=== PATIENT | male | born 1965 | race Caucasian/White ===

== ENCOUNTER 2020-12-23 15:58 | Outpatient (REF) | payer SELFPAY | END 2020-12-23 15:59 | disposition home or self-care (01) | LOC: LBN 15:58 | PROVIDERS: PCP Family Medicine; Visit Provider Family Medicine | DX: R30.9 Painful micturition, unspecified (principal) | CPT/HCPCS: 87086 ==

== ENCOUNTER 2021-02-25 14:59 | Outpatient (REF) | payer SELFPAY ==
[2021-02-25 17:36] LABS: HCT 37.9 % (40.0-50.0); HGB 11.9 g/dL (13.5-17.5); MCH 30.1 pg (27.0-33.0); MCHC 31.4 % (32.0-36.0); MCV 95.9 fL (80-95); MPV 10.8 fL (8.0-11.0); Platelet Count 226 10^3/uL (130-400); RBC 3.95 10^6/uL (4.36-5.78); RDW-SD 56.5 fL; WBC 9.18 10^3/uL (4.4-10.8)
[2021-02-25 19:43] LABS: ALT 29 U/L (16-63); AST 13 U/L (15-37); Albumin 3.4 g/dL (3.4-5.0); Alkaline Phosphatase 97 U/L (46-116); Anion Gap 13.1 mmol/L (3-11); BUN 16 mg/dL (7-18); Bilirubin, Total 0.3 mg/dL (0.2-1.0); CO2 23.9 mmol/L (21.0-32.0); CREATININE 0.9 mg/dL (0.70-1.30); Chloride 104 mmol/L (98-107); Cholesterol 271 mg/dL (<200); Glucose 124 mg/dL (74-106); HDL Cholesterol 36 mg/dL (40-60); Potassium 3.7 mmol/L (3.5-5.1); Sodium 141 mmol/L (136-145); Triglyceride 485 mg/dL (<150)
[2021-02-25 20:01] LABS: C-Reactive Protein 0.39 mg/dL (0.0-0.3)
[2021-02-25 20:14] LABS: LDL CHOLESTEROL 121 mg/dL (<100)
[2021-02-28 09:40] LABS: PSA, Screening 0.9 ng/mL (0.0-3.5)
== END 2021-02-25 15:00 | disposition home or self-care (01) ==
LOC: NCHCN 14:59
PROVIDERS: PCP Family Medicine; Visit Provider Family Medicine
DX: U07.1 COVID-19 (principal); Z00.00 Encounter for general adult medical examination without abnormal findings; Z86.2 Personal history of diseases of the blood and blood-forming organs and certain disorders involving the immune mechanism; Z86.39 Personal history of other endocrine, nutritional and metabolic disease; Z87.01 Personal history of pneumonia (recurrent)
CPT/HCPCS: 80053; 80061; 83721; 84153; 85027; 86140

== ENCOUNTER 2021-06-01 17:53 | Outpatient (REF) | payer SELFPAY ==
[2021-06-01 19:59] LABS: Abs Immature Grans 0.08 10^3/uL (0.0-0.06); Absolute Basophil Count 0.05 10^3/uL (0.0-0.2); Absolute Eosinophil Count 0.23 10^3/uL (0.0-0.7); Absolute Lymphocyte Count 1.64 10^3/uL (1.2-3.4); Absolute Monocyte Count 0.68 10^3/uL (0.1-0.8); Absolute Neutrophil Count 6.65 10^3/uL (1.2-6.7); Basophils % 0.5; Eosinophils % 2.5; HCT 41.9 % (40.0-50.0); HGB 13.2 g/dL (13.5-17.5); Immature Grans % 0.9; Lymphocytes % 17.6; MCH 28.8 pg (27.0-33.0); MCHC 31.5 % (32.0-36.0); MCV 91.3 fL (80-95); MPV 9.8 fL (8.0-11.0); Monocytes % 7.3; Neutrophils % 71.2; Nucleated RBC 0 %; Platelet Count 288 10^3/uL (130-400); RBC 4.59 10^6/uL (4.36-5.78); RDW 13.8 % (11.8-14.1); RDW-SD 46.7 fL; WBC 9.33 10^3/uL (4.4-10.8)
[2021-06-01 20:06] LABS: Anion Gap 8.2 mmol/L (3-11); BUN 24 mg/dL (7-18); CO2 25.8 mmol/L (21.0-32.0); CREATININE 1.1 mg/dL (0.70-1.30); Chloride 104 mmol/L (98-107); Glucose 97 mg/dL (74-106); Potassium 4.3 mmol/L (3.5-5.1); Sodium 138 mmol/L (136-145)
== END 2021-06-01 17:54 | disposition home or self-care (01) ==
LOC: NCHCN 17:53
PROVIDERS: PCP Family Medicine; Visit Provider Physician Assistant Medical
DX: R42 Dizziness and giddiness (principal)
CPT/HCPCS: 80048; 85025

== ENCOUNTER 2021-12-27 02:19 | Outpatient (CLI) | payer SELFPAY ==
[2021-12-27 08:52] LABS: HCT 46.3 % (40.0-50.0); HGB 14.6 g/dL (13.5-17.5); MCHC 31.5 % (32.0-36.0); MCV 89 fL (80-95); MPV 9.4 fL (8.0-11.0); Platelet Count 304 10^3/uL (130-400); RBC 5.22 10^6/uL (4.36-5.78); RDW 15.8 % (11.8-14.1); RDW-SD 51.3 fL
[2021-12-27 09:21] LABS: Anion Gap 10.4 mmol/L (3-11); BUN 26 mg/dL (7-18); CO2 27.6 mmol/L (21.0-32.0); CREATININE 1.2 mg/dL (0.70-1.30); Calcium 9.4 mg/dL (8.5-10.1); Chloride 101 mmol/L (98-107); Estimated GFR 70.53 (mL/min/1.73m2); Glucose 101 mg/dL (74-106); Potassium 4.4 mmol/L (3.5-5.1); Sodium 139 mmol/L (136-145)
[2021-12-27 12:34] LABS: Source Nasal/Nares
[2021-12-27 18:15] LABS: COVID-19 PCR Negative (Negative)
== END 2021-12-27 02:20 | disposition home or self-care (01) ==
LOC: LBO 02:19
PROVIDERS: PCP Family Medicine; Visit Provider Student in an Organized Health Care Education/Training Program
DX: M25.551 Pain in right hip (principal); M87.051 Idiopathic aseptic necrosis of right femur; Z20.822 Contact with and (suspected) exposure to COVID-19; Z01.818 Encounter for other preprocedural examination; Z01.812 Encounter for preprocedural laboratory examination
CPT/HCPCS: 36415; 80048; 85027; 87635

== ENCOUNTER 2021-12-28 06:02 | Day surgery (SDC) | payer SELFPAY ==
[2021-12-28] VITALS (14 sets, daily range): BP systolic 92–124; BP diastolic 44–84; PULSE 78–94; RESP 13–21; TEMP 36.2–36.5; O2SAT 92–99; BMI 30.6
[2021-12-28] MEDS: Acetaminophen 500 MG TAB 1000 MG PO ×2 (06:27→13:22)
[2021-12-28] MEDS: Celecoxib 200 MG CAP 400 MG PO (06:27)
[2021-12-28] MEDS: Lactated Ringers 1,000 ML 80 ML IV (07:00)
--- NOTE | 2021-12-28 08:30 | DI.RAD_ITS ---
Exam(s) XR HIP RT IN OR EXAM: XR HIP RT IN OR CLINICAL HISTORY: Avascular necrosis of bone of right hip TECHNIQUE: 2D and realtime digital imaging was performed. CONTRAST MATERIAL: Refer to procedure report. COMPARISON: No exams were available for comparison FINDINGS: Fluoroscopy was provided for Dr. Michael during the performance of a right hip arthroplasty placeme nt. Please refer to the procedure report for complete details. Ka,r=6.95 mGy IMPRESSION: RADIATION DOSE DELIVERED:
--- NOTE | 2021-12-28 08:59 | PDOC.DSDIS_ITS ---
Discharge Plan Disposition Patient Disposition: HOME Condition: Good Discharge Details Reason For Visit: R THR Attending Provider: Je Michael Primary Care Provider: Megan Camacho V Home Meds and New Rx's Prescriptions: New celecoxib 200 mg capsule 200 mg PO BID Qty: 60 0RF aspirin 81 mg tablet,delayed release (DR/EC) 81 mg PO BID Qty: 60 0RF acetaminophen 500 mg tablet 1,000 mg PO TID Qty: 90 3RF pantoprazole 40 mg tablet,delayed release (DR/EC) 40 mg PO DAILY Qty: 30 0RF oxycodone 5 mg tablet 5 mg PO Q4H MDD 6 tabs PRN (Reason: pain) Qty: 20 0RF Continued metoprolol tartrate 50 mg tablet 50 mg PO BID baclofen 10 mg tablet 10 mg PO TID diclofenac potassium 50 mg tablet 50 mg PO BID Label Comments: pt. reports he no longer takes gabapentin 300 mg capsule 300 mg PO QHS Discontinued acetaminophen [Tylenol] 325 mg tablet 325 mg PO QID PRN naproxen sodium [Aleve] 220 mg Tablet 220 mg PO DAILY Discharge Instructions Additional Instructions: Total Hip Discharge Instructions Activity: The most important activity is to walk. You should try to take short walks a few times a day. You have no restrictions on movement or positioning, but do not try to force what you do. You will find some stiffness and weakness with hip flexion (lifting your knee). Do not try to strengthen this too early, continue to practice walking and stairs and this will come. - Outpatient physical therapy can be helpful to help return you to a normal gait and improve your flexibility and strength. This can start around 2 weeks. For some patients, it?s not necessary. Usually this is determined at the time of discharge or at the first post-operative visit. - You should wear the RANJEET hose on both legs for 2 weeks. Dressing: Keep the surgical dressing in place for at least one week. After the first week it may be removed and replace with light gauze and tape or nothing. It may get wet after 3 days but avoid soaking the dressing. If it gets wet, just lightly pat dry. It is important to always keep some gauze between skin folds, especially when you are sitting. Spend some time with the wound exposed when you are lying flat as the incision does wrinkle onto itself. Medications: - You should take Tylenol and an anti-inflammatory Celebrex as your primary pain control medications. If the Celebrex is too expensive or not covered, please call the office for another alternative (Advil/Ibuprofen or Naproxen/Aleve). - You have been prescribed a stronger pain medication Oxycodone for breakthrough pain, take as needed as prescribed. - You have also been prescribed a stomach acid reduction agent Pantoprozole to help reduce stomach acid and reflux. - You will be taking Aspirin 81mg twice a day for DVT prevention unless instructed otherwise. - If you have constipation you should take Colace or Miralax (both [id number]). It takes most people 3-4 days to have a bowel movement. Follow-up: 2 weeks If you have any acute concerns or questions, please do not hesitate to contact the office at [phone]. You may contact Dr. Michael with any questions after hours through the hospital at [phone] or on his cell phone at [phone]. Stand Alone Forms: Anesthesia Discharge Inst., Paresh Burns ([facility]) Referrals: Je Michael MD [ [facility] STAFF PHYSICIAN] - Equipment/Supplies: Walker Activity:: Activity as Tolerated Shower/Bathe:: 72 hours Diet:: As Tolerated Discharge Orders Discharge Orders: Discharge Order (Routine); Ordered 12/28/21 Ordered By: Je Michael
--- NOTE | 2021-12-28 09:10 | ANES.PREOP_ITS ---
General Info Date of Service Date Performed: 12/28/21 Height: 6 ft 2 in Weight: 108.2 kg Body Mass Index (BMI): 30.6 Surgical Procedure: Operation Date: 12/28/21 10:35 Proposed Procedure Side Surgeon p Hip Total Hip Anterior Right Je Michael MD Meds Allergies and Home Medications Allergies Allergy/AdvReac Type Severity Reaction Status Date / Time lorazepam AdvReac Intermediate Other (See Unverified 12/28/21 06:16 Comment) Home Medication Medication Instructions Recorded baclofen 10 mg tablet 10 mg PO TID 11/23/21 diclofenac potassium 50 mg tablet 50 mg PO BID 11/23/21 gabapentin 300 mg capsule 300 mg PO QHS 11/23/21 metoprolol tartrate 50 mg tablet 50 mg PO BID 11/23/21 acetaminophen 500 mg tablet 1,000 mg PO TID #90 tabs 12/28/21 aspirin 81 mg tablet,delayed 81 mg PO BID #60 tabs 12/28/21 release celecoxib 200 mg capsule 200 mg PO BID #60 caps 12/28/21 oxycodone 5 mg tablet 5 mg PO Q4H PRN pain #20 tabs 12/28/21 pantoprazole 40 mg tablet,delayed 40 mg PO DAILY #30 tabs 12/28/21 release Current Visit Medications: Current Medications Generic Name Dose Route Start Last Admin Trade Name Kartik PRN Reason Stop Dose Admin Acetaminophen 1,000 mg 12/28/21 06:00 12/28/21 06:27 Acetaminophen 500 Mg Tab PO 1,000 mg PREOP HEIDY Administration Acetaminophen 1,000 mg 12/28/21 12:30 Acetaminophen 500 Mg Tab PO TID HEIDY Aspirin 81 mg 12/28/21 20:00 Aspirin E.C. 81 Mg Tabec PO BID HEIDY Celecoxib 400 mg 12/28/21 06:00 12/28/21 06:27 Celecoxib 200 Mg Cap PO 400 mg PREOP HEIDY Administration Celecoxib 200 mg 12/28/21 20:00 Celecoxib 200 Mg Cap PO BID HEIDY Docusate Sodium 100 mg 12/28/21 07:42 Docusate Sodium 100 Mg Cap PO BID PRN PRN Constipation Ephedrine Sulfate 0 mg 12/28/21 08:52 Ephedrine 25 Mg/5 Ml Syringe IVP DIRECTED PRN Fentanyl 0 mcg 12/28/21 08:52 Fentanyl 100 Mcg/2 Ml Vial IVP DIRECTED PRN Gabapentin 300 mg 12/28/21 22:00 Gabapentin 300 Mg Cap PO HS HEIDY Hydromorphone HCl 0 mg 12/28/21 08:52 Hydromorphone 2 Mg/Ml Syr IVP DIRECTED PRN Tranexamic Acid 1,000 mg/ 60 mls @ 360 mls/hr 12/28/21 06:00 Sodium Chloride IV 12/28/21 18:00 PREOP HEIDY Ringer's Solution 1,000 mls @ 80 mls/hr 12/28/21 06:00 IV 01/26/22 23:59 INFUSION HEIDY Cefazolin Sodium/Dextrose 2 gm in 50 mls @ 100 mls/hr 12/28/21 06:00 Ancef Duplex IVPB 01/26/22 23:59 PREOP HEIDY Cefazolin Sodium/Dextrose 1 gm in 50 mls @ 100 mls/hr 12/28/21 08:00 Ancef Duplex IVPB 12/29/21 00:29 Q8H HEIDY Ringer's Solution 1,000 mls @ 30 mls/hr 12/28/21 09:00 IV INFUSION [facility] IV Miscellaneous Supplies 1 each 12/28/21 06:00 Iv Access IV 01/26/22 23:59 DIRECTED HEIDY Naloxone HCl 0 mg 12/28/21 08:52 Naloxone 0.4 Mg/Ml Vial IVP PRN PRN Ondansetron HCl 4 mg 12/28/21 07:42 Ondansetron 4 Mg/2 Ml Vial IVP Q6H PRN PRN Nausea Oxycodone HCl 0 mg 12/28/21 07:42 Oxycodone 5 Mg Tab PO Q3H PRN PRN Pain Pantoprazole Sodium 40 mg 12/29/21 07:30 Pantoprazole 40 Mg Tabcr PO DAILY@0730 HEIDY Polyethylene Glycol 17 gm 12/28/21 07:42 Polyethylene Glycol 3350 17 Gm Packet PO BID PRN PRN Constipation Sodium Chloride 0 ml 12/28/21 06:00 Normal Saline Flush 10 Ml Syr IV 01/26/22 23:59 PRN PRN Sodium Chloride 0 ml 12/28/21 06:00 Normal Saline 10 Ml Vial IJ 01/26/22 23:59 DIRECTED PRN Sterile Water 0 ml 12/28/21 06:00 Water,Injection,Sterile 10 Ml Vial IJ 01/26/22 23:59 DIRECTED PRN [facility] Active Problems Active Problems: Problem Status Onset Code Lumbar radiculopathy, right M54.16 Constricting chest pain often radiating down left arm R07.89 GERD (gastroesophageal reflux disease) K21.9 Tachycardia R00.0 Avascular necrosis of bone of right hip M87.051 Medical History Medical History (Updated 12/28/21 @ 06:22 by Suha Duke) COVID-19 12/14/20 08/22/21 COVID-19 nichole conwayuler Gout History of pulmonary embolism PE - 12/27/20 HTN (hypertension) pt. denies states he was put on metoprolol when on ventilator, never told he had high BP Hx of colonic polyps Hx of Crohn's disease Nocturia Surgical History Surgical History History of tracheostomy Hx of colonoscopy Hx of wisdom tooth extraction also reports tooth extraction from roof of mouth Status post insertion of percutaneous endoscopic gastrostomy (PEG) tube Tobacco Smoking/Tobacco Use Status: Never Alcohol Alcohol Intake: current Alcohol intake frequency: a few times a week Alcohol type: hard liquor Substance Use Substance use: Never Substance use type: does not use Details: alcohol: t-7 Vital Signs and Lab Results Vital Signs Most Recent Vital Signs in EMR: Most Recent Vital Signs Temp Pulse Resp BP Pulse Ox 36.4 C L 89 18 101/76 96 12/28/21 06:34 12/28/21 06:34 12/28/21 06:34 12/28/21 06:34 12/28/21 06:34 Lab Results Blood Type / Crossmatch: No Data to Display Complete Blood Count: White Blood Count 10.30 10^3/uL (4.4-10.8) 12/27/21 08:42 Red Blood Count 5.22 10^6/uL (4.36-5.78) 12/27/21 08:42 Hemoglobin 14.6 g/dL (13.5-17.5) 12/27/21 08:42 Hematocrit 46.3 % (40.0-50.0) 12/27/21 08:42 Platelet Count 304 10^3/uL (130-400) 12/27/21 08:42 Complete Metabolic Panel: Sodium Level 139 mmol/L (136-145) 12/27/21 08:42 Potassium Level 4.4 mmol/L (3.5-5.1) 12/27/21 08:42 Chloride Level 101 mmol/L (98-107) 12/27/21 08:42 Carbon Dioxide Level 27.6 mmol/L (21.0-32.0) 12/27/21 08:42 Blood Urea Nitrogen 26 mg/dL (7-18) H 12/27/21 08:42 Creatinine 1.2 mg/dL (0.70-1.30) 12/27/21 08:42 Calcium Level 9.4 mg/dL (8.5-10.1) 12/27/21 08:42 Glucose Level 101 mg/dL (74-106) 12/27/21 08:42 Liver Function Panel: No Data to Display Coagulation Panel: No Data to Display Cardiac Panel: No Data to Display Arterial Blood Gas: No Data to Display Venous Blood Gas: No Data to Display Pancreas Panel: No Data to Display Thyroid Panel: No Data to Display Infectious Disease: Coronavirus (COVID-19)(PCR) Negative (Negative) 12/27/21 11:28 Coronavirus 2019 Source Nasal/Nares 12/27/21 11:28 Blood Cultures: No Data to Display Toxicology Panel: No Data to Display Anesthesia Assessment and Plan Anesthesia History Personal History: No History of Anesthesia Complications Family History: No Family History of Anesthesia Complications Exercise Tolerance Exercise Tolerance: Metabolic Equivalents>4 Pertinent Negatives Pertinent Negatives: No Symptoms of GERD, No Major Cardiovascular Symptoms or Complaints and No Major Pulmonary Symptoms or Complaints Cardiac & Pulmonary Exam Cardiac Exam: Normal S1/S2 Heart Sounds Pulmonary Exam: Clear Bilateral Breath Sounds Implantable Cardiac Device Does patient have a Pacemaker or an ICD?: No Airway Exam Known Difficult Airway: No Mallampati Class: 1 Mouth Opening: Normal (> 3cm) Thyromental Distance: Greater than 3 cm Neck Range of Motion: Full ROM Neck Circumference: Normal Teeth Condition: Normal Dentition ASA Classification ASA Score: ASA 2 Emergency Case?: No NPO Status NPO Status: NPO Clears >2 hours, Solids >8 hours Anesthesia Plan Resuscitation Status: Full Code Anesthesia Technique: MAC Anesthesia Airway Planned: Natural Airway Monitors Used: Standard Monitors
[2021-12-28] MEDS: ceFAZolin 2 GM/50 ML BAG IVPB (09:59)
[2021-12-28] MEDS: HYDROmorphone 2 MG/ML SYR IVP ×3 (12:09→12:45)
[2021-12-28] MEDS: Normal Saline 10 ML VIAL IJ (12:09)
--- NOTE | 2021-12-28 12:51 | W.ANESPOSTOP ---
Postoperative Evaluation Date, Time and Location Date Performed: 12/28/21 Time Performed: 12:51 Patient Location: PACU Vital Signs Most Recent Imported Vital Signs: Most Recent Vital Signs Temp Pulse Resp BP Pulse Ox 36.4 C L 78 19 104/84 94 12/28/21 12:44 12/28/21 12:44 12/28/21 12:44 12/28/21 12:44 12/28/21 12:44 Pain Score Most Recent Pain Score: Most Recent Pain Score Pain Level 4 12/28/21 12:44 Assessment Mental Status: Awake (Alert & Oriented to Patient Baseline) Airway and Respiratory Function: Patent airway with normal (patient baseline) respiratory exam Cardiovascular Function: Hemodynamically Stable Hydration Status: Adequately Hydrated Nausea & Vomiting: No Nausea or Vomiting Pain: Pain is tolerable per patient Peripheral Nerve Block: Patient did not receive a nerve block
--- NOTE | 2021-12-28 15:33 | IN_ITS ---
Date of service: 12/28/21 Time of Service: 15:33 PT Notes Visit Reasons: R THR Physical Therapy Day Surgery Initial Evaluation Date: 12/28/2021 Referring Doctor: PADMINI Hanson PT Orders: PT CONSULT: S/P Ortho Surgery Precautions: WBAT on R LE with AD. Patient Profile/Admitting Diagnosis: James is a 56-year-old male with avascular necrosis of the bone of the right hip and is status post right anterior total hip arthroplasty on postoperative day 0. PMHX: Medical History?(Updated 12/22/21 @ 13:31 by Melissa Metzger) COVID-19 12/14/20 08/22/21 Gout History of pulmonary embolism PE - 12/27/20 Nocturia Surgical History?(Updated 12/22/21 @ 13:31 by Melissa Metzger) History of tracheostomy Status post insertion of percutaneous endoscopic gastrostomy (PEG) tube Social History/Home Situation: Lives with in a private home with a ramp to enter. Independent with all aspects of ADLs although had been hobbling along without an assistive device prior to admission. Equipment Owned/DME: [facility] Subjective: Reported considerable lightheadedness when he sat up at edge of bed, BP went down to the low 90s/70s mmHg from 113/80s mmHg some half hour prior. Patient was asked to slowly stand up after about 5 minutes of sitting and doing seated B LE exercises, his BP softened some more to mid 80s/70s mmHg with report of increased lightheadedness. Objective: General Observation: SUpine in bed. TEDS to B legs. Went pale in the lips in sitting and standing. Mental Status: Alert and oriented x 4 Pain: 4-5/10 pain in the R hip and thigh at rest and with movement ROM: Right Lower Extremity: Hip flexion lacks the last 25% of AROM due to discomfort. Hip abduction lacks the last 25% of AROM due to discomfort knee extension WFL. Knee flexion WFL. Ankle dorsiflexion WFL. Ankle plantarflexion WFL. Left Lower Extremity: Hip flexion WFL. Hip abduction WFL. Knee flexion WFL. Ankle dorsiflexion WFL. Ankle plantarflexion WFL. Strength: Right Lower Extremity: Hip flexors 3-/5. Hip abductors 3-/5. Knee flexors 4/5. K nee extensors 4/5. Ankle dorsiflexors 5/5. Ankle plantarflexors 5/5. Left Lower Extremity:Hip flexors 5/5. Hip abductors 5/5. Knee flexors 5/5. Knee extensors 5/5. Ankle dorsiflexors 5/5. Ankle plantarflexors 5/5. Sensation: Inatct as to pain and light pressure in B LE Bed Mobility/Transfers: Supine to sit stand by assist Sit to stand contact guard assist Stand to sit stand by assist Bed to chair contcat guard assist Gait: Deferred initially during the first attempt at mobility assessment due to reduction in BP. However was able to perform up to 150 feet of level surface ambulation 2.5 hours after for this second attempt. Balance: Static Sitting: Normal Dynamic Sitting: Normal Static Standing: Fair Dynamic Standing: Fair Special Tests: Mobility Limitations Standardized Measure [facility]-PAC 6 clicks Basic Mobility Inpatient Short Form: Raw Score: 19 CMS Score: 42% deficit Informed Consent/Education: Patient instructed in purpose of PT consult. Education and training on initial set of exercises that can be done at home have been completed with patient with reference to the [employer] stanislav. Assessment: Hypotensive episode limited earlier attempt at mobility assessment. Patient needed more time to recover from anesthesia and therefore needed a second visit this afternoon to complete mobility assessment . James requires the use of front-wheeled walker to maximize independence and reduce fall risk. Patient presents with clinical signs and symptoms consistent with current/admitting diagnoses that have resulted to mobility limitations, gait instability, generalized weakness, and impairment of motor control as demonstrated by the following impairment level findings: 1. Decreased strength to R hip major muscle groups 2. Impaired standing balance 3. Lightheadedness that affected initial attempt at mobility assessment Impairments are contributing to the following functional limitations: 1. Inability to safely ambulate without assistive device 2. Increase completion time for mobility ADL performance 3. Increased fall risk Patient is assessed as a 90155 mdoerate complexity based on the following: History: 56-year-old male with impairment level findings, functional limitations, and past medical history as indicated above Examination: Demonstrable impairment in strength, balance, and mobility level with underlying impairments and functional limitations as documented above Presentation: Evolving Decision Makin moderate complexity Goals: N/A. PT evaluation and 1-2 treatment sessions only for functional mobility training using recommended AD and for HEP instruction. Plan of Care/Treatment Plan: N/A. PT evaluation and 1-2 treatment session only for functional mobility training using recommended AD and for HEP instruction. DISCHARGE RECOMMENDATIONS: [] Home with no services [] [] Home with services [specify] [X] Home with outpatient PT. Home when medically cleared by orthopedic surgeon. Will benefit from outpatient PT services to maximize functional outcomes and facilitate return to independent community ambulation. [] SNF for continued rehabilitation [] [] [facility] [] [] SNF versus LTC based on ability to participate and progress [] TREATMENT CODE/TIME: 68665 moderate complexity, [id number] x 19 minutes beginning at 13:58 AM and 15:33 PM. Thank you for the opportunity to participate in the care of this patient. Kaylyn Patino PT, DPT, CLT [facility] [place], [place]
--- NOTE | 2021-12-28 22:04 | W.PM.OP ---
Date of service: 12/28/21 Time of Service: 11:30 Operative Note Operative Note DATE OF PROCEDURE: 12/28/21 PRE-OP DIAGNOSIS: Right Hip Avascular Necrosis POST-OP DIAGNOSIS: same PROCEDURE: Right Anterior Total Hip Arthroplasty with Intraoperative Navigation SURGEON: Je Michael ELECTRIC METER TESTER SHOP: Zac Rowell ANESTHESIA TYPE: General LMA/ETT and Spinal Refer to Anesthesia Record ESTIMATED BLOOD LOSS: 450 PATHOLOGY: none sent TOURNIQUET TIME: 0 COMPLICATIONS: None Patient was transported to: PACU Patient's condition: stable Implants: 1. Depuy Youngwood Acetabular Component, 56mm 2. Depuy Acetabular Liner, [id number] 3. Depuy Corail Standard Collared Femoral Stem, Size 13 4. Depuy Altrx Ceramic Femoral Head, Size 36+5mm Indications: I have seen James in clinic for symptoms of hip arthritis, confirmed with radiographic findings. James has exhausted nonoperative methods and was having significant limitations in daily function and desired better function and less pain. I discussed the technical details of a hip replacement. I explained the risks of the procedure to include, but not limited to, bleeding, infection, pain, stiffness, fracture, damage to nerves and vessels, damage to muscles and tendons, loosening, instability, leg length inequality, need for repeat procedure, blood clot and cardiopulmonary demise. Despite these risks, [NAME] elected to proceed. Findings: There was a notable defect of the superior femoral head with signis of AVN as well as an area of complete loss of cartilage from the superior acetabulum. Procedure Description: James was greeted in the preoperative holding area where the correct side was identified and marked. The consent was reviewed with the patient and signed. The history and physical was updated. All questions were answered. He was taken back to the operating room. A spinal anesthestic was then administered. However, there didn't appear to be complete coverage and therefore a general anesthetic was administered. The feet were wrapped with cast padding and Coban and then placed into the boot liners and then into the boots. Care was taken to protect the skin and make sure the heels were fully down and the boots were stable. The patient was then positioned onto the HANA table. Both legs were held in a neutral position. SCDs were applied. The patient was then slid down onto a peroneal post. Prophylactic antibiotics in the form of Cefazolin were administered. 1g of Tranxemic Acid was given intravenously within 30 minutes of incision. The right leg was then prepped with Chloraprep and draped in a standard fashion. A second prep with Chloraprep was performed prior to placement of a shower-curtain type drape with Iodine impregnated skin protection. A timeout to confirm correct identity, side and site, procedure, allergies, anesthesia, and medical concerns was performed. An obliquely oriented incision was made starting lateral to the ASIS and running distal over the Tensor Fascia Wendy (TFL) muscle belly toward the fibular head, approximately 10cm. The skin and soft tissue was dissected sharply, through Charanjit?s fascia, and to the fascia of the TFL. With the fascia and superior border of the IT band identified, the fascia was incised with a new knife just above any perforators from the IT band. The TFL muscle belly was bluntly dissected away from the fascia and moved laterally. The fat between TFL and rectus was identified to ensure the dissection was not within the TFL. Blunt dissection created space between abductors and the capsule and retractor was placed over the lateral femoral neck. The fibers of the rectus femoris tendon were identified and these were freed from the anterior capsule. A second cobra retractor was placed around the medial femoral neck. The TFL was further retracted laterally to show the deep fascia. Careful dissection through this layer identified three main crossing vessels of the lateral femoral circumflex. These were cauterized in multiple locations and then cut without any noticeable bleeding. The TFL was further released bluntly from the deep fascia to expose anterior hip capsule and fat The Kevin orthopaedic retractor was then placed beneath the TFL and against sartorius and medial soft tissues to protect and retract the soft tissues. A T-capsulotomy was then performed starting at the superior lateral acetabulum and moving distally to the intertrochanteric ridge. These capsular flaps were tagged with a No. 1 Ethibond and elevated from within. The capsular flaps were released to the shoulder of the lateral neck and to the lesser trochanter to give excellent visualization of the proximal femur. A neck osteotomy was performed using an oscillating saw based on preoperative templates. This cut started in the shoulder and of the lateral neck and exited medially. The saw was at all times directed medially to avoid injury to the greater trochanter. Gross traction was applied to the leg and the osteotomy opened. The femoral head was removed with a corkscrew, making sure to protect the TFL on its exit. Traction was released after head removal. This was measured on the back table to determine the starting reamer size. Portions of the rectus obscuring visualization were minimally elevated off the superior acetabulum. An anterior retractor was placed over the anterior wall between capsule and labrum and attached to the Gripper retraction system. The femur was rotated to 90 degrees and medial capsule was fully released until the lesser trochanter was palpable and visible; the femur was returned to 30 degrees. A posterior retractor was placed similarly between capsule and labrum. This provided excellent visualization. The contents of the cotyloid fossa were removed with electrocautery and the labrum was removed with a knife. There was a notable floor osteophyte. There was significant chondromalacia of the superior acetabulum. Acetabular reaming began with a 50mm reamer. This first reaming was directed anterior to posterior and medial to get down to the true floor. This was inspected and reamed until the true floor was reached. The anterior retractor was then released and entry and exit was provided by traction on the capsular flaps. I then reamed sequentially up to a 56mm reamer where good fit was obtained. The larger reamers were oriented based on anatomical reference of the anterior and lateral jung to ensure proper abduction and anteversion. Positioning and size was confirmed with the fluoroscopy. A 56mm Depuy [place] acetabular component was selected. The acetabulum was reamed around the periphery with the selected acetabular size to prevent a rim fit. The deep tissues were irrigated. The acetabular component was then impacted in a position of about 40-45 degrees of abduction and 15-20 degrees of anteversion, using the patient?s anatomy as the ultimate landmark. Fluoroscopy was used to confirm this. There was excellent second hand paper machine of the acetabular component and the inserting handle was removed. The acetabular liner, Depuy [id number] polyethylene liner, was inserted and lined up with the tines of the acetabular component. There was no soft tissue interposition. The liner was then impacted into position and confirmed to be well-seated. A portion of the marina-articular cocktail was then injected around the acetabulum into the capsule and periosteum. This cocktail consisted of 123mg of Ropivacaine, 0.25mg of Epinephrine, 0.04mg of Clonidine, and 15mg of Ketorolac, diluted to 50cc. The leg was rotated to 120 degrees. Any remaining medial capsule was released until the lesser trochanter was easily palpable. A retractor was placed medially. The lateral capsule was further released into the shoulder to allow access to the greater trochanter. A Mae retractor was placed over the greater trochanter which allowed the trochanter to flip in front of the capsule for excellent exposure. The leg was brought down into maximal extension and 20 degrees of adduction while ensuring there was no impingement on the acetabulum. Any remnant capsule within the trochanter was released. Piriformis and obturator externis were identified and protected. There was excellent access to the proximal femur. The lateral neck remnant was removed with a rongeur. A blunt canal probe was used to identify the canal and trajectory for later broaching. A box osteotome initiated the broach course. A small curved rasp and a curved curette were used to work laterally. Broaching then began with a size 8 Corail broach. This was inserted manually around the trochanter and into the canal before mallet blows. The broach was seated to a few millimeters below the cut level based on the neck cut and the preoperative template. Sequential broaching was continued with the Shopatronse pneumatic broaching device until a tight fit was obtained with good rotational control of the femur. A trial standard neck was inserted along with a +5 trial head. The leg was brought out of extension and adduction and then reduced with traction and internal rotation. The leg was stable anteriorly in a position of 30 degrees of extension and 90 degrees of external rotation. Fluoroscopy was used to ensure there was no fracture and the stem was seated well. Leg lengths were checked with an AP pelvis and pelvic reference points. InPlace navigation system was used to confirm appropriate positioning and leg length and offset. Once content with the desired offset and leg lengths, the leg was brought back into extension, external rotation and adduction. The periosteum and surrounding tissue was injected with remaining portion of the marina-articular cocktail. The proximal femur was irrigated as well as the deep tissues. The Depuy Corail standard collared stem, size 13, was then manually inserted into the proximal femur making sure to control rotation. It was then malleted into position with light blows, giving breaks to allow bone expansion and decrease risk of fracture. The selected Depuy Altrx Ceramic Head, size 36+5mm, was then placed onto the clean and dry trunnion and secured with impaction onto the tapered fit. The leg was brought back out of extension and adduction and reduced with traction and internal rotation. Stability was confirmed with no shuck at 90 degrees of external rotation and 30 degrees of extension. No impingement through range of motion arc. Final x-ray images were obtained with fluoroscopy to confirm adequate positioning and no intraoperative fracture. The deep tissues were thoroughly irrigated with Surgiphor, betadine solution. This was allowed to sit in the wound for 3 minutes before being thoroughly irrigated out with normal saline. The capsule was then reapproximated with the previously placed Ethibond sutures. The TFL fascia was finally closed with a No. 2 Stratafix, barbed suture. Deep tissues were then reapproximated with 0 Vicryl and a running 2-0 Vicryl. The skin was closed with a running 4-0 Monocryl in a subcuticular fashion. This was reinforced with skin glue. A Mepilex silver dressing was applied. At the end of the case, all counts were correct. James was transferred to the hospital bed without difficulty and suffering no apparent complication. James has a good prognosis. Physical therapy will start today and without restrictions, weight-bearing as tolerated. Aspirin 81mg BID will be used for DVT prophylaxis.
== END 2021-12-28 16:10 | disposition home or self-care (01) ==
PROVIDERS: PCP Family Medicine; Visit Provider Student in an Organized Health Care Education/Training Program
PROC: (CPT 27130; principal; 2021-12-28 10:15)
DX: M16.11 Unilateral primary osteoarthritis, right hip (principal); K21.9 Gastro-esophageal reflux disease without esophagitis
CPT/HCPCS: 27130; 20985; 97162; 97530; 73501; J0690; J1100; J1170; J1885; J2250; J2370; J2405; J2704

== ENCOUNTER 2022-01-12 10:43 | Outpatient (CLI) | payer SELFPAY ==
--- NOTE | 2022-01-12 09:38 | DI.RAD_ITS ---
Exam(s) XR HIP RT COMPLETE AP PELVIS EXAM: XR HIP RT COMPLETE AP PELVIS INDICATION: 1st post op R PRAMOD. COMPARISON: CR XR HIP SINGLE W PELVIS from 06/30/2021 MR MR HIP RIGHT WO CONTRAST from 10/14/2021 XA XR HIP RT IN OR from 12/28/2021 TECHNIQUE: 2D digital imaging was performed. Two views. FINDINGS: There has been no change in the alignment of the right hip prosthesis. No suspicious bony lucencies. The left hip is unremarkable. DATA REPOSITORY: RADIATION DOSE DELIVERED:
== END 2022-01-12 10:44 | disposition home or self-care (01) ==
LOC: DIORS 10:43
PROVIDERS: PCP Family Medicine; Referring Provider Family Medicine; Visit Provider Student in an Organized Health Care Education/Training Program
DX: Z96.641 Presence of right artificial hip joint (principal)
CPT/HCPCS: 73502

== ENCOUNTER 2024-05-14 21:47 | Outpatient (REF) | payer SELFPAY ==
[2024-05-14 21:02] LABS: ALT 33 U/L (16-63); AST 18 U/L (15-37); Albumin 4.3 g/dL (3.4-5.0); Alkaline Phosphatase 71 U/L (46-116); Anion Gap 7.3 mmol/L (3-11); BUN 20 mg/dL (7-18); Bilirubin, Total 0.63 mg/dL (0.2-1.0); CO2 28.7 mmol/L (21.0-32.0); CREATININE 1.3 mg/dL (0.70-1.30); Calcium 9.3 mg/dL (8.5-10.1); Chloride 105 mmol/L (98-107); Estimated GFR 62.89 (mL/min/1.73m2); Glucose 108 mg/dL (74-106); Potassium 4.2 mmol/L (3.5-5.1); Sodium 141 mmol/L (136-145); TSH 0.94 uIU/mL (0.36-3.74); Total Protein 7.6 g/dL (6.4-8.2)
[2024-05-14 21:03] LABS: Hemoglobin A1C 5.4 % (<5.7)
[2024-05-14 21:40] LABS: Calculated LDL 79 mg/dL (<100); Cholesterol 180 mg/dL (<200); HDL Cholesterol 46 mg/dL (40-60); Triglyceride 279 mg/dL (<150)
[2024-05-15 00:22] LABS: Abs Immature Grans 0.04 10^3/uL (0.0-0.06); Absolute Basophil Count 0.06 10^3/uL (0.0-0.2); Absolute Eosinophil Count 0.18 10^3/uL (0.0-0.7); Absolute Lymphocyte Count 2.08 10^3/uL (1.2-3.4); Absolute Monocyte Count 0.54 10^3/uL (0.1-0.8); Absolute Neutrophil Count 5.49 10^3/uL (1.2-6.7); Basophils % 0.7 %; Eosinophils % 2.1 %; HCT 52.5 % (40.0-50.0); HGB 17.5 g/dL (13.5-17.5); Immature Grans % 0.5 %; Lymphocytes % 24.8 %; MCH 31.2 pg (27.0-33.0); MCHC 33.3 % (32.0-36.0); MCV 94 fL (80-95); MPV 10.5 fL (8.0-11.0); Monocytes % 6.4 %; Neutrophils % 65.5 %; Platelet Count 199 10^3/uL (130-400); RBC 5.61 10^6/uL (4.36-5.78); RDW 13.3 % (11.8-14.1); RDW-SD 46.1 fL; WBC 8.39 10^3/uL (4.4-10.8)
[2024-05-15 19:00] LABS: PSA, Screening 0.7 ng/mL (<=4.5)
== END 2024-05-14 21:48 | disposition home or self-care (01) ==
LOC: NCHCN 21:47
PROVIDERS: PCP Family Medicine; Visit Provider Family Medicine
DX: Z00.00 Encounter for general adult medical examination without abnormal findings (principal)
CPT/HCPCS: 80053; 80061; 84153; 83036; 84443; 85025